=== PATIENT | female | born 1940 | race Asian ===

== ENCOUNTER 2016-08-06 15:31 | Emergency (ER) | payer MEDICARE ==
[~2016-08-06] VITALS: Ht 144.8 cm; Wt 57.9 kg
[2016-08-06] MEDS ORDERED: ETOMIDATE 20 MG/10 ML IVPush ONE (16:30)
[2016-08-06] MEDS ORDERED: FENTANYL PF 100 MCG/2ML IVPush PRN ×2 (16:30→16:43)
[2016-08-06] MEDS ORDERED: ONDANSETRON 2MG/ML, 2ML IVPush ONE (16:30)
[2016-08-06] MEDS ORDERED: SODIUM CHLORIDE FLUSH 10ML SYR IVF ONE (16:30)
[2016-08-06] MEDS ORDERED: HYDROmorphone 1 MG/ML, 1ML IV ONE (16:30)
[2016-08-06] MEDS ORDERED: FENTANYL PF 100 MCG/2ML ONE (16:33)
[2016-08-06] MEDS ORDERED: ETOMIDATE 20 MG/10 ML ONE (16:34)
[2016-08-06 18:04] VITALS: BP 178/88
== END 2016-08-06 18:08 | disposition home or self-care (01) ==
LOC: ED 16:07
DX: S43.004A Unspecified dislocation of right shoulder joint, initial encounter (principal); W01.0XXA Fall on same level from slipping, tripping and stumbling without subsequent striking against object, initial encounter; Y93.89 Activity, other specified; Y99.8 Other external cause status; Y92.89 Other specified places as the place of occurrence of the external cause
CPT/HCPCS: 23650; 73030; 96374; 99285; J3010